=== PATIENT | male | born 1965 | race American Indian/Alaskan Native ===

== ENCOUNTER 2019-02-18 12:10 | Day surgery (SDC) | payer OTHER ==
[~2019-02-18 12:10] MED LIST: NACL 0.9% 1000 ML 1,000 ML IV SCH
[2019-02-18] MEDS ORDERED: XYLOCAINE MPF 2% ONE (13:00)
--- NOTE | 2019-02-18 13:30 | Anesthesia Day of Surgery ---
Anesthesia Day of Surgery - Day of Surgery Patient Examined: Yes Patient H&P Reviewed: Yes Patient is NPO: Yes
--- NOTE | 2019-02-18 13:34 | Anesthesia Consultation ---
Anesthesia Consult and Med Hx Date of service: 02/18/19 - Airway Anesthetic Teeth Evaluation: Good, Caps ROM Head & Neck: Adequate Mental/Hyoid Distance: Adequate Mallampati Class: Class I Intubation Access Assessment: Good - Pre-Operative Health Status ASA Pre-Surgery Classification: ASA2 Proposed Anesthetic Plan: MAC - Cardiovascular System Hx Hypertension: Yes Hx Coronary Artery Disease: No (ETT 2 years ago-ok per pt) - Central Nervous System Hx Back Pain: Yes
--- NOTE | 2019-02-18 13:47 | Operative Report ---
Operative Report Operative Report: Date of procedure: 02/18/2019 Procedure: Colonoscopy with Hot biopsy Polypectomy. Attending physician: Moisés Campbell MD Field Marketing Director: Moisés Campbell MD Indication: Patient is a 53-year-old male who presents for colonoscopy for colorectal cancer screening. A colonoscopy serves to evaluate patient so that treatment may be directed based on the findings. Consent: Informed consent was obtained after advising the patient and family regarding nature of this procedure, its indications, potential benefits as well as possible complications including but not limited to bleeding perforation and adverse reaction to medication, infection as well as other cardiopulmonary complications. An informed written and verbal consent was then obtained after due opportunity was provided for questions and answers. Monitoring: Patient was monitored continuously with pulse oximetry and electrocardiographic recordings as well as blood pressure recordings. Vital signs remained stable throughout this procedure with no untoward events. Preoperative assessment: Patient was assessed immediately prior to this procedure for capacity to tolerate monitored anesthesia care and moderate sedation as well as general anesthesia. Patient's ASA classification is 2, Mallampati class is 2, Hyomental distance is 3. Instrument: Olympus video colonoscope [id number] Medications: Propofol given intravenously in divided doses. For details please refer to anesthesia records. Description of procedure: Patient was placed in the left lateral decubitus position after achieving sedation, a digital rectal examination was performed following which the colonoscope was introduced into the anal verge and advanced to the cecum which was identified by the ileocecal valve, the appendiceal orifice, as well as by the cecal strap and direct transillumination. The colonoscope was subsequently withdrawn with careful inspection of all mucosal surfaces. Patient tolerated this procedure well and was subsequently taken to the recovery room. The following findings were noted. Findings: The patient had some retained stool in the cecum and ascending colon and transverse colon. This was irrigated as much as possible to optimize visualization. The patient had some diminutive diverticula in the sigmoid colon. In the sigmoid colon also, patient had a 4 mm polyp which was removed by hot biopsy polypectomy and retrieved. On the retroflex view at the anal verge, patient had internal hemorrhoids. Impression: Diminutive sigmoid colon polyp status post hot biopsy polypectomy Mild diverticulosis Internal hemorrhoids . Plan: Follow pathology report High-fiber diet. Repeat colonoscopy in 5 years if the polyp is adenomatous.
--- NOTE | 2019-02-18 13:48 | Discharge Summary ---
Short Stay Discharge Plan Activity: advance as tolerated Weight Bearing Status: Weight Bear as Tolerated Diet: regular Follow up with: [facility] [Primary Care Provider] - 7 Days
[2019-02-18] MEDS ORDERED: WATER FOR IRRIG STERILE IR ONE (14:18)
[2019-02-18] MEDS ORDERED: WATER FOR IRRIG STERILE ONE (14:18)
[2019-02-18] MEDS ORDERED: DIPRIVAN 10 MG/ML IV ONE (14:27)
[2019-02-18 16:30] VITALS: BP 121/74
== END 2019-02-18 12:11 | disposition home or self-care (01) ==
LOC: EDSEX 12:10 → GIO 12:10
PROVIDERS: ATTEND Internal Medicine Gastroenterology
DX: Z12.11 Encounter for screening for malignant neoplasm of colon (principal); K63.5 Polyp of colon; K64.8 Other hemorrhoids; K57.30 Diverticulosis of large intestine without perforation or abscess without bleeding; I10 Essential (primary) hypertension; I25.10 Atherosclerotic heart disease of native coronary artery without angina pectoris; Z79.899 Other long term (current) drug therapy
CPT/HCPCS: 45384; 88305; J2704; J7030